=== PATIENT | male | born 1975 | race Caucasian/White ===

== ENCOUNTER 2017-12-29 22:11 | Emergency (ER) | payer OTHER ==
[~2017-12-29] VITALS: Ht 170.2 cm; Wt 103.0 kg
--- NOTE | ~2017-12-29 | EKG ---
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 : 1975 Requested By: Cathleen Emmanuel Order Number: [id number] MD: Ignacio Ramirez Measurements Intervals [place] Rate: 62 P: 71 [place]: 157 QRS: -16 QRSD: 88 T: -39 QT: 458 QTc: 466 Interpretive Statements Sinus rhythm Abnormal R-wave progression, early transition Inferior infarct, age indeterminate No previous ECG available for comparison Electronically Signed On 01-01-2018 7:50:40 CDT by Ignacio Ramirez [email or web address] <ELECTRONICALLY SIGNED> By: Ignacio Ramirez MD, [facility] 01/01/18 0750 [id number] [id number] Ignacio Ramirez MD, FACC /EPI
[2017-12-29] MEDS ORDERED: PLAVIX 75 MG TA75 M1 PO (22:17)
[2017-12-29] MEDS ORDERED: LISINOPRIL2.5 MG PO (22:17)
[2017-12-29] MEDS ORDERED: ASPIR 8181 MG PO (22:17)
[2017-12-29] MEDS ORDERED: ATORVASTATIN CA80 MG PO (22:17)
[2017-12-29] MEDS ORDERED: PACERONE 200 M200 M1 PO (22:18)
[2017-12-29] MEDS ORDERED: METOPROLOL TAR100 MG (22:19)
[2017-12-29 23:43] LABS: ABSOLUTE NEUTROPHILS 7.2 thou/uL (1.4-8.2); EOSINOPHILS 1.1 % (0.0-3.0); HEMATOCRIT 44.5 % (42.0-52.0); HEMOGLOBIN 15.3 gm/dL (14.0-18.0); LYMPHOCYTES 22.1 % (24.0-44.0); MCHC 34.5 g/dL (28.0-37.0); MCV 84.1 fL (80.0-100.0); MONOCYTES 8.9 % (1.0-8.0); PLATELET COUNT 321 thou/uL (150-400); POLYS 66.9 % (36.0-66.0); RDW 15.1 % (10.5-14.5); WBC 10.7 thou/uL (4.0-11.0)
[2017-12-29 23:51] LABS: CALCIUM 8.3 mg/dL (8.5-10.1); CREATININE 1.3 mg/dL (0.7-1.3); POTASSIUM 3.5 mmol/L (3.5-5.1)
[2017-12-30] LABS: TROPONIN-I 0.53 ng/mL (<0.06)
[2017-12-30] MEDS ORDERED: LIORESAL 10 MG10 MG PO ×2 (02:36→03:08)
[2017-12-30] MEDS ORDERED: CHLORPROMAZINE25 M1 PO (03:11)
[2017-12-30 03:17] VITALS: BP 110/50
== END 2017-12-30 03:18 | disposition home or self-care (01) ==
LOC: ER 22:11
PROVIDERS: Emergency Medicine
DX: R06.02 Shortness of breath (principal); R06.6 Hiccough; I10 Essential (primary) hypertension; E78.5 Hyperlipidemia, unspecified; Z95.5 Presence of coronary angioplasty implant and graft; Z87.891 Personal history of nicotine dependence

== ENCOUNTER 2018-01-01 10:54 | Emergency (ER) | payer OTHER ==
[~2018-01-01] VITALS: Ht 170.2 cm; Wt 103.0 kg
--- NOTE | ~2018-01-01 | EKG ---
[place] [address] [facility] [place] [address] ELECTROCARDIOGRAM REPORT Name: ALEXIS DENISE Room #: 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 : 1975 Requested By: Man Seay Order Number: [id number] MD: Ignacio Ramirez Measurements Intervals [place] Rate: 87 P: 60 [place]: 141 QRS: -29 QRSD: 91 T: -43 QT: 385 QTc: 463 Interpretive Statements Sinus rhythm Abnormal R-wave progression, early transition Inferior infarct, age indeterminate Compared to ECG 12/29/2017 23:34:29 No significant changes Electronically Signed On 01-01-2018 17:06:15 CDT by Ignacio Ramirez [email or web address] <ELECTRONICALLY SIGNED> By: Ignacio Ramirez MD, [facility] 01/01/18 1706 1057 105 Ignacio Ramirez MD, [facility] /EPI
[~2018-01-01 10:54] MED LIST: ASPIR 8181 MG PO; ATORVASTATIN CA80 MG PO; CHLORPROMAZINE25 M1 PO; LIORESAL 10 MG10 MG PO; LISINOPRIL2.5 MG PO; METOPROLOL TAR100 MG; PACERONE 200 M200 M1 PO; PLAVIX 75 MG TA75 M1 PO
[2018-01-01 11:17] LABS: ABSOLUTE NEUTROPHILS 5.9 thou/uL (1.4-8.2); BASOPHILS 0.8 % (0.0-2.0); EOSINOPHILS 1.3 % (0.0-3.0); HEMATOCRIT 45.7 % (42.0-52.0); HEMOGLOBIN 15.9 gm/dL (14.0-18.0); LYMPHOCYTES 16.7 % (24.0-44.0); MCH 28.9 pg (26.0-34.0); MCHC 34.7 g/dL (28.0-37.0); MCV 83.3 fL (80.0-100.0); MONOCYTES 7.6 % (1.0-8.0); PLATELET COUNT 298 thou/uL (150-400); POLYS 73.6 % (36.0-66.0); RBC 5.49 mil/uL (4.50-6.00); RDW 14.9 % (10.5-14.5)
[2018-01-01 11:28] LABS: CALCIUM 9.2 mg/dL (8.5-10.1); CREATININE 1.4 mg/dL (0.7-1.3); POTASSIUM 3.4 mmol/L (3.5-5.1)
[2018-01-01 13:35] VITALS: BP 125/78
== END 2018-01-01 14:08 | disposition home or self-care (01) ==
LOC: ER 10:54
PROVIDERS: Emergency Medicine
DX: R07.9 Chest pain, unspecified (principal); I10 Essential (primary) hypertension; E78.5 Hyperlipidemia, unspecified; E78.00 Pure hypercholesterolemia, unspecified; Z95.5 Presence of coronary angioplasty implant and graft; Z87.891 Personal history of nicotine dependence

== ENCOUNTER 2018-01-04 13:02 | Emergency (ER) | payer OTHER ==
[~2018-01-04] VITALS: Ht 167.6 cm; Wt 99.8 kg
--- NOTE | ~2018-01-04 | EKG ---
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 : 1975 Requested By: Belle Quinonez Order Number: [id number] MD: Ignacio Ramirez Measurements Intervals [place] Rate: 61 P: 57 [place]: 149 QRS: -29 QRSD: 82 T: -44 QT: 437 QTc: 441 Interpretive Statements Sinus rhythm Inferoposterior infarct, age indeterminate Lateral leads are also involved Compared to ECG 01/01/2018 10:57:10 No significant changes Electronically Signed On 01-05-2018 8:49:00 CDT by Ignacio Ramirez [email or web address] <ELECTRONICALLY SIGNED> By: Ignacio Ramirez MD, [facility] 01/05/18 0849 1352 1352 Ignacio Ramirez MD, [facility] /EPI
[2018-01-04 13:13] VITALS: BP 109/63
[2018-01-04 13:43] LABS: ABSOLUTE NEUTROPHILS 7.2 thou/uL (1.4-8.2); BASOPHILS 0.9 % (0.0-2.0); EOSINOPHILS 1.2 % (0.0-3.0); HEMATOCRIT 48.2 % (42.0-52.0); HEMOGLOBIN 16.1 gm/dL (14.0-18.0); LYMPHOCYTES 17.1 % (24.0-44.0); MCH 28.5 pg (26.0-34.0); MCHC 33.5 g/dL (28.0-37.0); MONOCYTES 7.2 % (1.0-8.0); PLATELET COUNT 284 thou/uL (150-400); POLYS 73.6 % (36.0-66.0); RBC 5.66 mil/uL (4.50-6.00); RDW 15.2 % (10.5-14.5); WBC 9.7 thou/uL (4.0-11.0)
[2018-01-04 13:48] LABS: CALCIUM 8.6 mg/dL (8.5-10.1); CREATININE 1.4 mg/dL (0.7-1.3); POTASSIUM 4.1 mmol/L (3.5-5.1)
[2018-01-04 13:57] LABS: ALBUMIN 3.6 g/dL (3.4-5.0); TOTAL BILIRUBIN 0.9 mg/dL (<0.1-1.0); TOTAL PROTEIN 7.8 g/dL (6.4-8.2); TROPONIN-I 0.07 ng/mL (<0.06)
[2018-01-04 17:20] VITALS: BP 109/53
== END 2018-01-04 17:20 | disposition home or self-care (01) ==
LOC: ER 13:02 → EROBS 13:42 → ER 17:20
PROVIDERS: Physician Assistant
DX: R06.6 Hiccough (principal); R61 Generalized hyperhidrosis; I12.9 Hypertensive chronic kidney disease with stage 1 through stage 4 chronic kidney disease, or unspecified chronic kidney disease; N18.9 Chronic kidney disease, unspecified; E78.00 Pure hypercholesterolemia, unspecified; I25.2 Old myocardial infarction; Z87.891 Personal history of nicotine dependence

== ENCOUNTER 2018-01-17 08:38 | Inpatient (IN) | payer OTHER ==
[~2018-01-17] VITALS: Ht 170.2 cm; Wt 98.1 kg
[2018-01-17] VITALS (8 sets, daily range): BP systolic 104–124; BP diastolic 57–71
--- NOTE | ~2018-01-17 | 2DMMODE ---
[facility] [address] [place] [address] 2 D/M-MODE ECHOCARDIOGRAM Name: ALEXIS DENISE Room #: 211-P ADM IN M.R.#: [id number] Admission: 01/17/18 Attend Phys: Osei Darling MD Discharge: Date of : 79 Date of Service: 01/17/18 1425 Report #: [id number] THIS REPORT FOR: //name// APPROVED REPORT Study performed: 01/17/2018 13:40:33 EXAM: Comprehensive 2D, Doppler, and color-flow Echocardiogram Patient Location: Echo lab Room #: [facility] Status: routine BSA: 2.07 HR: 58 bpm BP: 105/71 mmHg Rhythm: NSR Other Information Study Quality: Good Indications Chest pain. Palpitations. Hx: PA, stent 6 weeks ago. Hx: HTN, HLP 2D Dimensions RVDd: 39.29 mm LVEF(%): 60.82 (>50%) IVSd: 11.00 (7-11mm) LVOT Diam: 22.37 (18-24mm) LVDd: 56.00 mm PWd: 11.00 (7-11mm) Ascending Ao: 28.33 (22-36mm) LVDs: 37.53 (25-40mm) Aortic Root: 30.84 mm Lord's LVEF: 60.82 % Volumes Left Atrial Volume (Systole) Single Plane 4CH: 46.16 mL Single Plane 2CH: 68.13 mL LA ESV Index: 30.00 mL/m2 Aortic Valve AoV Peak Rachid.: 1.60 m/s AO Peak Gr.: 10.24 mmHg LVOT Max P.44 mmHg LVOT Max V: 1.17 m/s GENOVEVA Vmax: 2.86 cm2 Mitral Valve E/A Ratio: 2.2 MV Decel. Time: 189.36 ms [facility] [place] [address] 2 D/M-MODE ECHOCARDIOGRAM Name: ALEXIS DENISE Room #: 211-P [facility] IN .R.#: [id number] Admission: 01/17/18 Attend Phys: Osei Darling MD Discharge: Date of : 79 Date of Service: 01/17/18 1425 Report #: [id number] MV E Max Rachid.: 0.92 m/s MV A Rachid.: 0.42 m/s MV PHT: 54.91 ms IVRT: 83.04 ms Pulmonary Valve PV Peak Rachid.: 1.16 m/s PV Peak Gr.: 5.41 mmHg Pulmonary Vein P Vein S: 0.59 m/s P Vein D: 0.70 m/s P Vein S/D Ratio: 0.84 Tricuspid Valve TR Peak Rachid.: 2.34 m/s RAP Estimate: 5.00 mmHg TR Peak Gr.: 21.87 mmHg PA Pressure: 27.00 mmHg Left Ventricle The left ventricle is normal size. Borderline concentric left ventricular hypertrophy. Left ventricular systolic function is normal. LVEF is 50-55%. The left ventricular diastolic function is normal. Right Ventricle The right ventricle is normal size. The right ventricular systolic function is normal. Atria The left atrium size is normal. The right atrium size is normal. Aortic Valve The aortic valve is normal in structure. No aortic regurgitation is present. There is no aortic valvular stenosis. Mitral Valve The mitral valve is normal in structure. Mild mitral regurgitation. Tricuspid Valve The tricuspid valve is normal in structure. Mild tricuspid regurgitation. Estimated PAP is 25-30mmHg. Pulmonic Valve The pulmonary valve is normal in structure. Trace pulmonic [address] [address] 2 D/M-MODE ECHOCARDIOGRAM Name: HOWIEALEXIS ADLER Room #: 211-P [facility] IN .#: [id number] Admission: 01/17/18 Attend Phys: Osei Darling MD Discharge: Date of : 79 Date of Service: 01/17/18 1425 Report #: [id number] regurgitation. Great Vessels The aortic root is normal in size. The ascending aorta is normal in size. IVC is normal in size and collapses >50% with inspiration. Pericardium There is no pericardial effusion. <Conclusion> The left ventricle is normal size. LVEF is 50-55%. The aortic valve is normal in structure. The mitral valve is normal in structure. Mild mitral regurgitation. The tricuspid valve is normal in structure. Mild tricuspid regurgitation. Estimated PAP is 25-30mmHg. The pulmonary valve is normal in structure. Trace pulmonic regurgitation. There is no pericardial effusion. <ELECTRONICALLY SIGNED> By: Leoncio Newton MD 01/17/18 1425 1425 1425 Leoncio Newton MD /INF
--- NOTE | ~2018-01-17 | EKG ---
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: Davon ANGLIN RN : 1975 Requested By: Ledy Montanez Order Number: [id number] MD: Ignacio Ramirez Measurements Intervals [place] Rate: 62 P: 32 [place]: 141 QRS: -37 QRSD: 94 T: -47 QT: 432 QTc: 439 Interpretive Statements Sinus rhythm Abnormal R-wave progression, early transition Inferoposterior infarct, age indeterminate Lateral leads involved Compared to ECG 01/04/2018 13:52:34 No change Electronically Signed On 01-17-2018 9:09:00 CDT by Ignacio Ramirez [email or web address] <ELECTRONICALLY SIGNED> By: Ignacio Ramirez MD, [facility] 01/17/1809 8 Ignacio Ramirez MD, [facility] /EPI
[2018-01-17 09:09] LABS: HEMATOCRIT 47.1 % (42.0-52.0); HEMOGLOBIN 16.2 gm/dL (14.0-18.0); MCH 28.8 pg (26.0-34.0); MCHC 34.4 g/dL (28.0-37.0); MCV 83.7 fL (80.0-100.0); RBC 5.62 mil/uL (4.50-6.00); RDW 15.2 % (10.5-14.5); WBC 5.2 thou/uL (4.0-11.0)
[2018-01-17] MEDS ORDERED: BYSTOLIC 5 MG5 M1 PO (09:35)
[2018-01-17 10:08] LABS: ANION GAP 12 mmol/L (7-16); BUN 12 mg/dL (7-18); CALCIUM 8.9 mg/dL (8.5-10.1); CHLORIDE 102 mmol/L (98-107); CO2 25 mmol/L (21-32); CREATININE 1.2 mg/dL (0.7-1.3); GLUCOSE 103 mg/dL (74-106); POTASSIUM 3.9 mmol/L (3.5-5.1); SODIUM 139 mmol/L (136-145)
[2018-01-17 10:16] LABS: ALBUMIN 3.8 g/dL (3.4-5.0); SGOT 36 U/L (15-37); SGPT 66 U/L (30-65); TOTAL BILIRUBIN 0.7 mg/dL (<0.1-1.0); TOTAL PROTEIN 7.8 g/dL (6.4-8.2); TROPONIN-I <0.06 ng/mL (<0.06)
[2018-01-18 00:13] VITALS: BP 116/61
[2018-01-18 04:21] LABS: CALCIUM 7.9 mg/dL (8.5-10.1); CREATININE 1.1 mg/dL (0.7-1.3); POTASSIUM 3.7 mmol/L (3.5-5.1)
[2018-01-18 04:22] VITALS: BP 107/53
[2018-01-18 04:38] LABS: HEMATOCRIT 41.2 % (42.0-52.0); MCH 28.7 pg (26.0-34.0); MCV 84.4 fL (80.0-100.0); RBC 4.88 mil/uL (4.50-6.00); RDW 15.2 % (10.5-14.5)
[2018-01-18 08:09] VITALS: BP 115/64
[2018-01-18 08:38] LABS: CHOLESTEROL 103 mg/dL (<200); HDL CHOLESTEROL 25 mg/dL (>40); LDL CHOLESTEROL 64 mg/dL (<100); TC:HDL 4.1 Ratio (Not establshd); TRIGLYCERIDE 71 mg/dL (<150); VLDL 14 mg/dL (<40)
[2018-01-18 09:12] LABS: AMYLASE 46 U/L (25-115)
[2018-01-18] MEDS ORDERED: CRESTOR20 MG PO (10:07)
[2018-01-18 12:31] VITALS: BP 119/76
[2018-01-18 16:23] VITALS: BP 119/76
== END 2018-01-18 17:12 | disposition home or self-care (01) | DRG 313 ==
LOC: ER 08:38 → 2N 12:12
PROVIDERS: Hospitalist; Student in an Organized Health Care Education/Training Program
DX: R07.89 Other chest pain (principal); I10 Essential (primary) hypertension; E78.00 Pure hypercholesterolemia, unspecified; R63.4 Abnormal weight loss; I25.10 Atherosclerotic heart disease of native coronary artery without angina pectoris; G47.00 Insomnia, unspecified; E78.5 Hyperlipidemia, unspecified; Z79.82 Long term (current) use of aspirin; Z79.899 Other long term (current) drug therapy; Z95.5 Presence of coronary angioplasty implant and graft; Z87.891 Personal history of nicotine dependence; Z68.33 Body mass index [BMI] 33.0-33.9, adult
CPT/HCPCS: 10081

== ENCOUNTER 2018-01-23 13:53 | Emergency (ER) | payer OTHER ==
[~2018-01-23] VITALS: Ht 170.2 cm; Wt 95.3 kg
--- NOTE | ~2018-01-23 | EKG ---
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: lorie : 1975 Requested By: Lianet Parham Order Number: [id number] MD: Ignacio Ramirez Measurements Intervals [place] Rate: 61 P: 66 [place]: 152 QRS: -30 QRSD: 92 T: -49 QT: 437 QTc: 441 Interpretive Statements Sinus rhythm Inferior infarct, age indeterminate Lateral leads are also involved Compared to ECG 01/17/2018 08:59:05 No significant changes Electronically Signed On 01-24-2018 8:03:10 CDT by Ignacio Ramirez [email or web address] <ELECTRONICALLY SIGNED> By: Ignacio Ramirez MD, [facility] 01/24/18 08 D: [id number] Ignacio Ramirez MD, [facility] /EPI
[~2018-01-23 13:53] MED LIST changes: +BYSTOLIC 5 MG5 M1 PO; +CRESTOR20 MG PO
[2018-01-23 14:34] LABS: ABSOLUTE NEUTROPHILS 2.8 thou/uL (1.4-8.2); BASOPHILS 0.8 % (0.0-2.0); EOSINOPHILS 1.7 % (0.0-3.0); HEMATOCRIT 43.4 % (42.0-52.0); HEMOGLOBIN 14.7 gm/dL (14.0-18.0); LYMPHOCYTES 33.3 % (24.0-44.0); MCH 28.2 pg (26.0-34.0); MCHC 33.8 g/dL (28.0-37.0); MCV 83.3 fL (80.0-100.0); MONOCYTES 8.8 % (1.0-8.0); PLATELET COUNT 211 thou/uL (150-400); POLYS 55.4 % (36.0-66.0); RBC 5.21 mil/uL (4.50-6.00); RDW 14.9 % (10.5-14.5); WBC 5.1 thou/uL (4.0-11.0)
[2018-01-23 14:44] LABS: ANION GAP 6 mmol/L (7-16); BUN 14 mg/dL (7-18); CALCIUM 8.3 mg/dL (8.5-10.1); CHLORIDE 103 mmol/L (98-107); CO2 26 mmol/L (21-32); CREATININE 1.2 mg/dL (0.7-1.3); GLUCOSE 99 mg/dL (74-106); POTASSIUM 3.2 mmol/L (3.5-5.1); SODIUM 135 mmol/L (136-145)
[2018-01-23 14:49] LABS: ALBUMIN 3.4 g/dL (3.4-5.0); LIPASE 241 U/L (73-393); SGOT 28 U/L (15-37); SGPT 60 U/L (30-65); TOTAL BILIRUBIN 0.7 mg/dL (<0.1-1.0); TOTAL PROTEIN 7.4 g/dL (6.4-8.2); TROPONIN-I <0.06 ng/mL (<0.06)
[2018-01-23] MEDS ORDERED: BENTYL 20 MG TA20 M1 PO (15:19)
[2018-01-23] MEDS ORDERED: PHENERGAN 25 MG25 M1 PO (15:19)
== END 2018-01-23 15:55 | disposition home or self-care (01) ==
LOC: ER 13:53
PROVIDERS: Physician Assistant
DX: K80.50 Calculus of bile duct without cholangitis or cholecystitis without obstruction (principal); I10 Essential (primary) hypertension; E78.00 Pure hypercholesterolemia, unspecified; Z95.5 Presence of coronary angioplasty implant and graft; Z87.891 Personal history of nicotine dependence

== ENCOUNTER 2018-01-30 11:44 | Emergency (ER) | payer OTHER ==
[~2018-01-30] VITALS: Ht 170.2 cm; Wt 91.6 kg
--- NOTE | ~2018-01-30 | EKG ---
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: JUAN MANUEL : 1975 Requested By: Ledy Montanez Order Number: [id number] MD: Ignacio Ramirez Measurements Intervals [place] Rate: 67 P: 60 [place]: 148 QRS: -22 QRSD: 89 T: -45 QT: 420 QTc: 444 Interpretive Statements Sinus rhythm Inferior infarct, age indeterminate Lateral leads are also involved Compared to ECG 01/23/2018 14:16:29 No significant changes Electronically Signed On 01-30-2018 16:45:35 CDT by Ignacio Ramirez [email or web address] <ELECTRONICALLY SIGNED> By: Ignacio Ramirez MD, [facility] 01/30/18 1645 1157 1157 Ignacio Ramirez MD, [facility] /EPI
[~2018-01-30 11:44] MED LIST changes: +BENTYL 20 MG TA20 M1 PO; +PHENERGAN 25 MG25 M1 PO
[2018-01-30] MEDS ORDERED: FLEXERIL PO (14:13)
== END 2018-01-30 14:40 | disposition home or self-care (01) ==
LOC: ER 11:44
DX: R51 Headache (principal); M54.2 Cervicalgia; R45.851 Suicidal ideations; I10 Essential (primary) hypertension; E78.00 Pure hypercholesterolemia, unspecified; Z95.5 Presence of coronary angioplasty implant and graft; G47.00 Insomnia, unspecified; Z87.891 Personal history of nicotine dependence

== ENCOUNTER 2019-07-22 20:23 | Emergency (ER) | payer OTHER ==
[~2019-07-22] VITALS: Ht 170.2 cm; Wt 99.8 kg
--- NOTE | ~2019-07-22 | EKG ---
[facility] [place] [address] ELECTROCARDIOGRAM REPORT Name: ALEXIS DENISE Room #: [facility] M..#: [id number] Admission: Attend Phys: Discharge: Date of : 79 Report #: [id number] THIS REPORT FOR: cc: Dev Cancino MD, Kirk D. 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
[~2019-07-22 20:23] MED LIST changes: +FLEXERIL PO
[2019-07-22] MEDS ORDERED: HAWTHORNE BERRY PO (20:54)
[2019-07-22 21:00] VITALS: BP 131/96
[2019-07-22 21:21] LABS: ABSOLUTE NEUTROPHILS 5.1 thou/uL (1.4-8.2); BASOPHILS 0.9 % (0.0-2.0); EOSINOPHILS 2.1 % (0.0-3.0); HEMATOCRIT 42.8 % (42.0-52.0); HEMOGLOBIN 14.6 gm/dL (14.0-18.0); LYMPHOCYTES 37.3 % (24.0-44.0); MCH 30.5 pg (26.0-34.0); MCHC 34.2 g/dL (28.0-37.0); MCV 89.1 fL (80.0-100.0); MONOCYTES 7.7 % (1.0-8.0); PLATELET COUNT 218 thou/uL (150-400); RDW 12.5 % (10.5-14.5); WBC 9.8 thou/uL (4.0-11.0)
[2019-07-22 21:29] LABS: ANION GAP 11 mmol/L (7-16); BUN 16 mg/dL (7-18); CALCIUM 8.3 mg/dL (8.5-10.1); CHLORIDE 102 mmol/L (98-107); CO2 26 mmol/L (21-32); CREATININE 1.1 mg/dL (0.7-1.3); GLUCOSE 111 mg/dL (74-106); POTASSIUM 3.2 mmol/L (3.5-5.1); SODIUM 139 mmol/L (136-145)
[2019-07-22] MEDS ORDERED: ATIVAN0.5 M1 PO (21:35)
[2019-07-22 21:36] LABS: URINE BILIRUBIN NEGATIVE (Negative); URINE BLOOD 1+ (Negative); URINE CLARITY CLEAR; URINE COLOR YELLOW; URINE GLUCOSE-RANDOM* NEGATIVE (Negative); URINE KETONES NEGATIVE (Negative); URINE LEUKOCYTES-REFLEX NEGATIVE (Negative); URINE NITRITE-REFLEX NEGATIVE (Negative); URINE PROTEIN (DIPSTICK) NEGATIVE (Negative); URINE SPECIFIC GRAVITY 1.025 (1.005-1.035); URINE UROBILINOGEN 0.2 E.U./dl (0.2-1.0)
[2019-07-22 21:39] LABS: ALBUMIN 3.7 g/dL (3.4-5.0); MAGNESIUM 1.9 mg/dL (1.8-2.4); SGOT 20 U/L (15-37); SGPT 21 U/L (30-65); TOTAL BILIRUBIN 0.4 mg/dL (<0.1-1.0); TOTAL PROTEIN 7.4 g/dL (6.4-8.2); TROPONIN-I <0.06 ng/mL (<0.06)
[2019-07-22 21:42] LABS: AMP/METHAMP Negative (Negative); BARBITURATES Negative (Negative); BENZODIAZEPINES Negative (Negative); COCAINE Negative (Negative); METHADONE Negative (Negative); OPIATES Negative (Negative); PCP Negative (Negative)
[2019-07-22 21:57] LABS: BACTERIA-REFLEX 1-9 Few /HPF (None Seen); CASTS None Seen /LPF (None Seen); CRYSTALS None Seen /LPF (None Seen); SQUAMOUS None Seen /LPF (0-3); URINE RBC 0-2 Rare /HPF (0-2); URINE WBC-REFLEX None Seen /HPF (0-5)
== END 2019-07-22 22:30 | disposition home or self-care (01) ==
LOC: ER 20:23
PROVIDERS: Emergency Medicine
DX: R42 Dizziness and giddiness (principal); R00.2 Palpitations; I10 Essential (primary) hypertension; E78.00 Pure hypercholesterolemia, unspecified; Z95.5 Presence of coronary angioplasty implant and graft; Z87.891 Personal history of nicotine dependence

== ENCOUNTER 2019-12-28 02:26 | Emergency (ER) | payer OTHER ==
[~2019-12-28] VITALS: Ht 170.2 cm; Wt 109.3 kg
[~2019-12-28 02:26] MED LIST changes: +ATIVAN0.5 M1 PO; +HAWTHORNE BERRY PO
[2019-12-28] MEDS ORDERED: RED YEAST RICE600 MG (02:38)
[2019-12-28] MEDS ORDERED: AMOXICILLIN 50500 M1 PO (02:44)
[2019-12-28 02:56] LABS: ABSOLUTE NEUTROPHILS 4.4 thou/uL (1.4-8.2); BASOPHILS 0.6 % (0.0-2.0); EOSINOPHILS 2.4 % (0.0-3.0); HEMATOCRIT 42.8 % (42.0-52.0); HEMOGLOBIN 14.6 gm/dL (14.0-18.0); LYMPHOCYTES 39.5 % (24.0-44.0); MCH 31.1 pg (26.0-34.0); MCHC 34.2 g/dL (28.0-37.0); MCV 91.1 fL (80.0-100.0); MONOCYTES 8.3 % (1.0-8.0); PLATELET COUNT 188 thou/uL (150-400); POLYS 49.2 % (36.0-66.0); RDW 14.3 % (10.5-14.5); WBC 8.9 thou/uL (4.0-11.0)
[2019-12-28 03:03] LABS: ANION GAP 7 mmol/L (7-16); BUN 17 mg/dL (7-18); CALCIUM 8.5 mg/dL (8.5-10.1); CHLORIDE 100 mmol/L (98-107); CO2 28 mmol/L (21-32); CREATININE 0.9 mg/dL (0.7-1.3); GLUCOSE 144 mg/dL (74-106); POTASSIUM 3.7 mmol/L (3.5-5.1); SODIUM 135 mmol/L (136-145)
[2019-12-28 03:12] LABS: TROPONIN-I <0.06 ng/mL (<0.06)
[2019-12-28 04:58] VITALS: BP 126/78
--- NOTE | 2019-12-30 07:44 | EKG ---
[facility] [place] [address] ELECTROCARDIOGRAM REPORT Name: ALEXIS DENISE Room #: [facility]#: [id number] Admission: 12/28/19 Attend Phys: Discharge: 12/28/19 Date of : 79 Report #: [id number] THIS REPORT FOR: cc: Dev Cancino MD, Kirk D. MD Lundgren, Craig H. 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: [place] [address] : 1975 Requested By: Cathleen Emmanuel Order Number: [id number] MD: Ignacio Ramirez Measurements Intervals [place] Rate: 79 P: 53 [place]: 154 QRS: 2 QRSD: 100 T: 26 QT: 376 QTc: 432 Interpretive Statements Sinus arrhythmia Inferior infarct, old Compared to ECG 07/22/2019 20:21:45 Sinus tachycardia no longer present Electronically Signed On 12-30-2019 7:44:27 CDT by Ignacio Ramirez [email or web address] <ELECTRONICALLY SIGNED> By: Ignacio Ramirez MD, [facility] 12/30/19 0744 0235 0235 Ignacio Ramirez MD, [facility] /EPI
== END 2019-12-28 05:07 | disposition home or self-care (01) ==
LOC: ER 02:26
PROVIDERS: Emergency Medicine
DX: R00.2 Palpitations (principal); I10 Essential (primary) hypertension; E78.00 Pure hypercholesterolemia, unspecified; Z87.891 Personal history of nicotine dependence; Z79.899 Other long term (current) drug therapy; Z79.2 Long term (current) use of antibiotics

== ENCOUNTER → 2019-12-31 | Outpatient (CLI) | payer OTHER ==
[~2019-12-31] MED LIST changes: +AMOXICILLIN 50500 M1 PO; +RED YEAST RICE600 MG
== END ==
LOC: SJCVCIMAG 09:34
PROVIDERS: ATTEND Internal Medicine Cardiovascular Disease
DX: I08.1 Rheumatic disorders of both mitral and tricuspid valves (principal); I25.10 Atherosclerotic heart disease of native coronary artery without angina pectoris; Z98.61 Coronary angioplasty status